=== PATIENT | male | born 1980 | race Hispanic/Latino ===

== ENCOUNTER 2020-08-18 05:29 | Emergency (ER) | payer SELFPAY ==
[2020-08-18] MEDS ORDERED: HYDROcodone/Acetaminophen 5/325 mg Tablet ONE (05:57)
== END 2020-08-18 06:04 | disposition home or self-care (01) ==
LOC: ERS 05:29
DX: M54.5 Low back pain (principal); E11.9 Type 2 diabetes mellitus without complications; F17.210 Nicotine dependence, cigarettes, uncomplicated; Z79.899 Other long term (current) drug therapy; X50.0XXA Overexertion from strenuous movement or load, initial encounter
CPT/HCPCS: 99283

== ENCOUNTER 2020-10-11 08:37 | Outpatient (CLI) | payer OTHER ==
--- NOTE | 2020-10-11 10:45 | MRI ---
MR the lumbar spine without contrast: 10/11/2020 History: Low back pain radiating into the right leg with numbness and tingling COMPARISON: None. TECHNIQUE: Multiplanar multisequence MR images were obtained of lumbar spine without IV contrast FINDINGS: On the basis of 5 lumbar type vertebral bodies, conus medullaris terminates at theL1 level. Sagittal STIR imaging demonstrates no focal area of osseous marrow edema. T12-L1:No central canal or neural foraminal stenosis. L1-2:No central canal or neural foraminal stenosis L2-3:There is a right foraminal disc protrusion. There is partial disc desiccation. There is no signi ficant central canal stenosis or neural foraminal stenosis. There is minimal right lateral recess stenosis. L3-4:Partial disc desiccation noted. Mild facet hypertrophy on the right. Small right foraminal disc protrusion. Mild right neural foraminal stenosis. Minimal right lateral recess stenosis. No significant left neural foraminal stenosis. L4-5:Disc desiccation and mild bilateral facet hypertrophy. Mild left neural foraminal stenosis. No s ignificant central canal or right neural foraminal stenosis. L5-S1:Mild disc bulge. Mild bilateral facet hypertrophy and hypertrophy of the ligamentum flavum. No significant central canal or neural foraminal stenosis. Image retroperitoneal structures demonstrateno acute findings. 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 IMPRESSION: Relatively mild degenerative changes as detailed above.
== END 2020-10-11 08:38 | disposition home or self-care (01) ==
LOC: BICMRI 08:37
PROVIDERS: ATTEND Family Medicine
DX: S39.012A Strain of muscle, fascia and tendon of lower back, initial encounter (principal); M51.26 Other intervertebral disc displacement, lumbar region; M48.061 Spinal stenosis, lumbar region without neurogenic claudication; M51.87 Other intervertebral disc disorders, lumbosacral region
CPT/HCPCS: 72148